=== PATIENT | male | born 1950 | race Caucasian/White ===

== ENCOUNTER 2017-10-14 23:29 | Emergency (ER) | payer OTHER, MEDICARE ==
[2017-10-14 23:53] VITALS: BP 118/78; PULSE 71; RESP 18; TEMP 98.4; O2SAT 98
[2017-10-14] MEDS ORDERED: ALLO300T2 PO (23:57)
[2017-10-14] MEDS ORDERED: AMBI10TA PO (23:57)
[2017-10-15] MEDS ORDERED: ONDANSETRON HCL 4 MG/2 ML VIAL ONE (00:48)
--- NOTE | 2017-10-15 00:52 | PD ---
HPI Chief Complaint: GI Complaint Time Seen by Provider: 00:45 Travel History International Travel<30 days: No Contact w/Intl Traveler<30days: No Traveled to known affect area: No History of Present Illness HPI 66-year-old male complains of nausea vomiting diarrhea. Patient states that the symptoms started this evening. Patient states that family member has a 7 problem. Patient denies any headache. Patient denies any chest pain or shortness of breath. Patient denies abdominal pain. Patient denies any blood or mucus in the vomitus or the stool. Patient denies any fever chills. PFSH Past Medical History Arthritis: Yes Gout: Yes Hypertension: Yes Tetanus Vaccination: Unknown Influenza Vaccination: No Past Surgical History Surgical History: No Previous Surgery Social History Alcohol Use: No Tobacco Use: No Substance Use: No Allergies-Medications (Allergen,Severity, Reaction): Coded Allergies: iodine (Verified Allergy, Severe, 10/15/17) shellfish derived (Verified Allergy, Severe, 10/15/17) tolmetin (Verified Allergy, Severe, 10/15/17) Reported Meds & Prescriptions Reported Meds & Active Scripts Active Reported Ambien (Zolpidem Tartrate) 10 Mg Tab 10 Mg PO HS PRN Allopurinol 300 Mg Tab 300 Mg PO DAILY Review of Systems General / Constitutional: No: Fever Eyes: No: Visual changes HENT: No: Headaches Cardiovascular: No: Chest Pain or Discomfort Respiratory: No: Shortness of Breath Gastrointestinal: Positive: Nausea, Vomiting, Diarrhea, No: Abdominal Pain Genitourinary: No: Dysuria Musculoskeletal: No: Pain Skin: No Rash Neurologic: No: Weakness Psychiatric: No: Depression Endocrine: No: Polydipsia Hematologic/Lymphatic: No: Easy Bruising Physical Exam Narrative GENERAL: Well-nourished, well-developed patient. SKIN: Focused skin assessment warm/dry. HEAD: Normocephalic. EYES: No scleral icterus. No injection or drainage. NECK: Supple, trachea midline. No JVD or lymphadenopathy. CARDIOVASCULAR: Regular rate and rhythm without murmurs, gallops, or rubs. RESPIRATORY: Breath sounds equal bilaterally. No accessory muscle use. GASTROINTESTINAL: Abdomen soft, non-tender, nondistended. MUSCULOSKELETAL: No cyanosis, or edema. BACK: Nontender without obvious deformity. No CVA tenderness. Neurologic exam normal. Data Data Last Documented VS Vital Signs Date Time Temp Pulse Resp B/P (MAP) Pulse Ox O2 Delivery O2 Flow Rate FiO2 10/15/17 06:50 92 18 99/61 (74) 98 Room Air 10/15/17 02:54 100.1 Orders Orders Ondansetron Inj (Zofran Inj) (10/15/17 00:48) Complete Blood Count With Diff (10/15/17 00:50) Comprehensive Metabolic Panel (10/15/17 00:50) Lipase (10/15/17 00:50) Iv Access Insert/Monitor (10/15/17 00:50) Ecg Monitoring (10/15/17 00:50) Oximetry (10/15/17 00:50) Sodium Chlor 0.9% 1000 Ml Inj (Ns 1000 M (10/15/17 01:00) Ondansetron Inj (Zofran Inj) (10/15/17 01:00) Sodium Chlor 0.9% 1000 Ml Inj (Ns 1000 M (10/15/17 02:30) Metoclopramide Inj (Reglan Inj) (10/15/17 02:30) Diphenhydramine Inj (Benadryl Inj) (10/15/17 02:30) Zolpidem (Ambien) (10/15/17 03:45) Ketorolac Inj (Toradol Inj) (10/15/17 03:45) Sodium Chlor 0.9% 1000 Ml Inj (Ns 1000 M (10/15/17 04:00) Labs Laboratory Tests Test 10/15/17 01:15 White Blood Count 15.0 TH/MM3 Red Blood Count 4.61 MIL/MM3 Hemoglobin 15.0 GM/DL Hematocrit 44.8 % Mean Corpuscular Volume 97.1 FL Mean Corpuscular Hemoglobin 32.4 PG Mean Corpuscular Hemoglobin Concent 33.4 % Red Cell Distribution Width 13.9 % Platelet Count 216 TH/MM3 Mean Platelet Volume 7.4 FL Neutrophils (%) (Auto) 91.5 % Lymphocytes (%) (Auto) 3.6 % Monocytes (%) (Auto) 3.9 % Eosinophils (%) (Auto) 0.7 % Basophils (%) (Auto) 0.3 % Neutrophils # (Auto) 13.7 TH/MM3 Lymphocytes # (Auto) 0.5 TH/MM3 Monocytes # (Auto) 0.6 TH/MM3 Eosinophils # (Auto) 0.1 TH/MM3 Basophils # (Auto) 0.0 TH/MM3 CBC Comment DIFF FINAL Differential Comment Blood Urea Nitrogen 29 MG/DL Creatinine 1.14 MG/DL Random Glucose 109 MG/DL Total Protein 7.0 GM/DL Albumin 3.8 GM/DL Calcium Level 8.3 MG/DL Alkaline Phosphatase 57 U/L Aspartate Amino Transf (AST/SGOT) 20 U/L Alanine Aminotransferase (ALT/SGPT) 30 U/L Total Bilirubin 0.5 MG/DL Sodium Level 141 MEQ/L Potassium Level 4.5 MEQ/L Chloride Level 109 MEQ/L Carbon Dioxide Level 24.8 MEQ/L Anion Gap 7 MEQ/L Estimat Glomerular Filtration Rate 64 ML/MIN Lipase 149 U/L [facility] Medical Decision Making Medical Screen Exam Complete: Yes Emergency Medical Condition: Yes Interpretation(s) 3:45 AM. CBC WBC 15.0. 91 neutrophil. BUN 29. Differential Diagnosis Differential diagnosis including gastroenteritis, dehydration, electrolyte imbalance. Narrative Course 66-year-old male with nausea vomiting diarrhea. Normal saline solution 1 L IV bolus. Zofran 4 mg IV. Repeat normal saline solution 1 L IV bolus. Toradol 30 mg IV. Reglan 10 mg IV. Benadryl 25 mg IV. Ambien 10 mg by mouth. Diagnosis Primary Impression: Gastroenteritis Additional Impression: Dehydration Patient Instructions: General Instructions Additional Instructions: Take medications as needed. Encourage by mouth fluid. Follow-up with personal physician. Return if persistent problem or worse. Med/Other Pt SpecificInfo: Prescription(s) given Scripts Diphenoxylate-Atropine (Lomotil) 2.5-0.025 Mg Tab 1 TAB PO Q6H Y for DIARRHEA, #10 TAB 0 Refills Prov: Ray Palumbo MD 10/15/17 Ondansetron Odt (Zofran Odt) 4 Mg Tab 4 MG SL Q6HR Y for Nausea/Vomiting, #12 TAB 0 Refills Prov: Ray Palumbo MD 10/15/17 Disposition: 01 DISCHARGE HOME Condition: Stable Ray Palumbo MD Oct 15, 2017 00:52
[2017-10-15] MEDS ORDERED: SODIUM CHLOR 0.9% 1000 ML INJ 1,000 ML IV ONE ×2 (01:00→02:30)
[2017-10-15] MEDS ORDERED: ONDANSETRON HCL 4 MG/2 ML VIAL IV PUSH ONE (01:00)
[2017-10-15 01:31] LABS: AUTOMATED NEUTROPHIL # 13.7 TH/MM3 (1.8-7.7); BASOPHIL % 0.3 % (0.0-2.0); EOSINOPHIL # 0.1 TH/MM3 (0-0.4); EOSINOPHIL % 0.7 % (0.0-4.0); HEMATOCRIT 44.8 % (39.0-51.0); HEMO FLAGS DIFF FINAL; LYMPH % 3.6 % (9.0-44.0); LYMPHOCYTE # 0.5 TH/MM3 (1.0-4.8); MEAN CELL VOLUME 97.1 FL (80.0-100.0); MEAN CORPUSCULAR HEMOGLOBIN 32.4 PG (27.0-34.0); MEAN CORPUSCULAR HGB CONC 33.4 % (32.0-36.0); MONO % 3.9 % (0.0-8.0); NEUT % 91.5 % (16.0-70.0); PLATELET COUNT 216 TH/MM3 (150-450); RED BLOOD COUNT 4.61 MIL/MM3 (4.50-5.90); RED CELL DISTRIBUTION WIDTH 13.9 % (11.6-17.2)
[2017-10-15 02:01] LABS: ALKALINE PHOSPHATASE 57 U/L (45-117); TOTAL BILIRUBIN ADULT 0.5 MG/DL (0.2-1.0)
[2017-10-15 02:03] LABS: ALT (GPT) 30 U/L (12-78); ANION GAP 7 MEQ/L (5-15); AST (GOT) 20 U/L (15-37); BICARBONATE 24.8 MEQ/L (21.0-32.0); BLOOD UREA NITROGEN 29 MG/DL (7-18); CHLORIDE 109 MEQ/L (98-107); GLOMERULAR FILTRATION RATE 64 ML/MIN (>89); POTASSIUM 4.5 MEQ/L (3.5-5.1); SODIUM (NA) 141 MEQ/L (136-145)
[2017-10-15 02:16] VITALS: BP 109/61; PULSE 99; RESP 18; O2SAT 99
[2017-10-15] MEDS ORDERED: METOCLOPRAMIDE HCL 10 MG/2 ML VIAL IV PUSH ONE (02:30)
[2017-10-15] MEDS ORDERED: diphenhydrAMINE HCL 50 MG/ML VIAL IV PUSH ONE (02:30)
[2017-10-15 02:54] VITALS: TEMP 100.1
[2017-10-15] MEDS ORDERED: ZOLPIDEM TARTRATE 10 MG TAB PO ONE (03:45)
[2017-10-15] MEDS ORDERED: KETOROLAC TROMETHAMINE 30 MG/ML (IVP) VIAL IV PUSH ONE (03:45)
[2017-10-15 03:50] VITALS: BP 99/51; PULSE 103; RESP 20; O2SAT 100
[2017-10-15] MEDS ORDERED: SODIUM CHLOR 0.9% 1000 ML INJ 1,000 ML IV SCH (04:00)
[2017-10-15 06:50] VITALS: BP 99/61; PULSE 92; RESP 18; O2SAT 98
[2017-10-15] MEDS ORDERED: ZOFR4TAB3 SL (07:04)
[2017-10-15] MEDS ORDERED: LOMO2.5T PO (07:04)
[2017-10-15 07:56] VITALS: BP 100/68
== END 2017-10-15 08:18 | disposition home or self-care (01) ==
LOC: NEPC 23:29
DX: K52.9 Noninfective gastroenteritis and colitis, unspecified (principal); E86.0 Dehydration; M10.9 Gout, unspecified; I10 Essential (primary) hypertension; Z79.899 Other long term (current) drug therapy
CPT/HCPCS: 80053; 83690; 85025; 96361; 96374; 96375; 99284; J1200; J1885; J2405; J2765; J7030